=== PATIENT | female | born 1955 | race Caucasian/White ===

== ENCOUNTER 2019-03-18 04:35 | Inpatient (IN) | payer BC ==
[~2019-03-18] VITALS: Ht 157.5 cm; Wt 90.7 kg
--- NOTE | 2019-03-18 04:38 | NUR ---
Patient to ER bed 6 to gown for evaluation. Side rails up. Report given to Helder LOGAN.
--- NOTE | 2019-03-18 04:41 | NUR ---
ER at bedside examining patient.
[2019-03-18 04:42] VITALS: BP_SYST 132
[2019-03-18] MEDS ORDERED: NACL 0.9% 1,000 ML IV ONE (04:50)
[2019-03-18] MEDS ORDERED: MORPHINE SULFATE 10 MG/ML VIAL IVP ONE (05:00)
[2019-03-18] MEDS ORDERED: ONDANSETRON HCL 4 MG/2 ML VIAL IVP ONE ×2 (05:00→20:30)
--- NOTE | 2019-03-18 05:10 | NUR ---
Pt BIBA to ED C/O acute abdominal pain. The patient notes approximately 12 hours of acute onset abdominal pain, located in the bilateral lower quadrants. The patient describes the pain as crampy in nature, "feels like my previous appendicitis, radiating throughout the entire abdomen to deep bilateral back. Pt with past medical history notable for hiatal and ventral wall hernias, history of appendicitis status post appendectomy years prior in number of other abdominal surgeries which the patient cannot remember No other complaints noted VSS no s/s of acute distress Resting on gurney rails up
--- NOTE | 2019-03-18 05:30 | NUR ---
# 22 gauge angiocath placed to RT HAND. Use of asceptic technique. Opsite placed over site. Blood return noted. Blood for lab drawn from site. Flushed with 10 cc of normal saline. No evidence of infiltration noted. Patient tolerated well.
[2019-03-18 05:34] LABS: EOSINOPHILS # (AUTO) 0.1 K/uL (0.0-0.4); EOSINOPHILS % (AUTO) 1.4 % (0.0-4.0); NEUTROPHILS # (AUTO) 5.5 K/uL (1.8-7.7)
[2019-03-18 05:45] LABS: BASOPHILS % (AUTO) 0.4 % (0.0-2.0); HEMATOCRIT 41.5 % (36-48); HEMOGLOBIN 13.7 g/dL (12.0-16.0); LYMPHOCYTES # (AUTO) 1.2 K/uL (1.0-5.5); LYMPHOCYTES % (AUTO) 16.4 % (20.5-51.5); MEAN CORPUSCULAR HEMOGLOBIN 31 pg (27-31); MEAN CORPUSCULAR HGB CONC 33 % (32-36); MEAN CORPUSCULAR VOLUME 95 fL (79.0-98.0); MONOCYTES # (AUTO) 0.6 K/uL (0.0-1.0); MONOCYTES % (AUTO) 8.4 % (1.7-9.3); NEUTROPHILS % (AUTO) 73.4 % (40.0-70.0); PLATELET COUNT (AUTO) 205 K/uL (130-430); RED BLOOD CELL COUNT(AUTO) 4.38 MIL/uL (4.2-6.2); RED CELL DISTRIBUTION WIDTH 13.9 % (9.0-15.0); WHITE BLOOD COUNT (AUTO) 7.4 K/uL (4.8-10.8)
[2019-03-18 05:53] LABS: PROTHROMBIN TIME 9.8 SECS (9.5-12.5)
[2019-03-18 05:55] LABS: ALBUMIN 3.5 g/dL (3.4-4.8); CALCIUM 8.7 mg/dL (8.4-11.0); CREATININE 0.75 mg/dL (0.55-1.30); TOTAL BILIRUBIN 0.3 mg/dL (0.0-1.0)
--- NOTE | 2019-03-18 06:03 | NUR ---
Pt taken to Radiology in stable condition
[2019-03-18] MEDS ORDERED: IOHEXOL 350 mgI/mL, 150 ML INFUS..BTL IV ONE (06:22)
[2019-03-18] MEDS ORDERED: IOHEXOL 100 ML IV ONE (06:23)
[2019-03-18] MEDS ORDERED: MORPHINE 4 MG/ML INJ. SYRINGE ONE (10:36)
[2019-03-18] MEDS ORDERED: ONDANSETRON HCL 4 MG/2 ML VIAL ONE (10:36)
--- NOTE | 2019-03-18 10:43 | NUR ---
[facility].
[2019-03-18 11:11] LABS: BILIRUBIN,URINE NEGATIVE (NEGATIVE); BLOOD, URINE NEGATIVE (NEGATIVE); CLARITY/URINE CLEAR (CLEAR); COLOR,URINE YELLOW (YELLOW); GLUCOSE,URINE NEGATIVE (NEGATIVE); KETONES,URINE TRACE (NEGATIVE); LEUKOCYTE ESTERASE ,URINE NEGATIVE (NEGATIVE); NITRITE, URINE NEGATIVE (NEGATIVE); PROTEIN URINE NEGATIVE (NEGATIVE); UROBILINOGEN,URINE 0.2 (0.2-1.0)
[2019-03-18] MEDS ORDERED: MORP30TA PO (14:56)
[2019-03-18] MEDS ORDERED: ATOR10TA68 PO (15:04)
[2019-03-18] MEDS ORDERED: LISI-600 PO (15:04)
[2019-03-18] MEDS ORDERED: ZOLP10TA2 PO (15:04)
[2019-03-18] MEDS ORDERED: DITXL5 PO (15:04)
[2019-03-18] MEDS ORDERED: HYDR-3607 PO (15:04)
[2019-03-18] MEDS ORDERED: EST1 PO (15:04)
[2019-03-18] MEDS ORDERED: HYOS0.1275 PO (15:04)
[2019-03-18] MEDS ORDERED: DULO60CA41 PO (15:04)
[2019-03-18] MEDS ORDERED: RANI-362 PO (15:04)
--- NOTE | 2019-03-18 15:06 | NUR ---
Tried to give report to DOREEN García. She stated, "room is not clean yet. The patient was not discharged yet. I am not taking the patient yet.". CN aware.
--- NOTE | 2019-03-18 15:10 | NUR ---
Patient will be admitted to care of Dr. Hussein. Admitted to Medsurg unit. Will go to room 134A. Belongings list completed. Complete and up to date summary report printed. SBAR report given to DOREEN Ferrer at bedside with opportunity for questions.
--- NOTE | 2019-03-18 15:18 | NUR ---
CONSULTATION PAGED REASON FOR CONSULTATION:ABD PAIN/HERNIA WAS CONSULT CALLED?Y PERSON WHO WAS NOTIFIED:ARIELLE CONSULTING PHYSICIAN:KENDRA ESTES FOREST AIDE SPECIALTY:SURGEON FOREST AIDE PHONE NUMBER:[phone] REQUESTING PHYSICIAN:BRITTANY ADAMS
[2019-03-18 16:32] VITALS: BP_SYST 120
--- NOTE | 2019-03-18 17:15 | NUR ---
PAGED PAGED BRITTANY ADAMS AT [phone] SPOKE WITH ADITYA.
[2019-03-18] MEDS ORDERED: METOCLOPRAMIDE HCL 10 MG/2 ML VIAL IVP PRN (17:45)
[2019-03-18] MEDS ORDERED: MORPHINE 4 MG/ML INJ. SYRINGE IVP PRN (17:45)
[2019-03-18] MEDS ORDERED: ZOLPIDEM TARTRATE 5 MG TABLET PO PRN (17:45)
[2019-03-18] MEDS ORDERED: ACETAMINOPHEN 325 MG TABLET PO PRN (17:45)
[2019-03-18] MEDS ORDERED: ONDANSETRON HCL 4 MG/2 ML VIAL IVP PRN ×3 (17:45→22:45)
[2019-03-18] MEDS ORDERED: NACL 0.9% 1,000 ML IV SCH (17:45)
[2019-03-18] MEDS ORDERED: MORPHINE 2 MG/ML INJ. SYRINGE IVP PRN ×2 (17:45)
[2019-03-18] MEDS: D5NS 1,000 ML IV SCH (18:28)
--- NOTE | 2019-03-18 19:30 | NUR ---
Opening notes Received report. Patient resting in bed. No signs of distress noted. Breathing even and unlabored. IV patent and intact, infusing fluids. Patient awaiting to go to surgery. Surgical checklist in process. No needs. Call light with the patient. Safety precautions in place.
[2019-03-18 20:00] VITALS: BP_SYST 139
[2019-03-18] MEDS ORDERED: POLYMYXIN 500,000/BACIT.10,000 UNITS in NS IRR 1 L IR ONE (20:05)
[2019-03-18] MEDS ORDERED: BUPIVACAINE LIPOSOME/PF 266 MG/20 ML VIAL INFIL ONE (20:05)
[2019-03-18] MEDS ORDERED: MIDAZOLAM HCL 5 MG/5 ML VIAL IVP ONE (20:30)
[2019-03-18] MEDS ORDERED: PROPOFOL 200MG/ 20ML VIAL (DIPRIVAN) IV ONE (20:30)
[2019-03-18] MEDS ORDERED: SEVOFLURANE 15 MIN GAS INH ONE (20:30)
[2019-03-18] MEDS ORDERED: DEXAMETHASONE SOD PHOSPHATE 4 MG/ML VIAL IVP ONE (20:30)
[2019-03-18] MEDS ORDERED: LR 1,000 ML IV.SOLN IV ONE (20:30)
[2019-03-18] MEDS ORDERED: SUCCINYLCHOLINE CHLORIDE 20 MG/ML(QUELICIN) IVP ONE (20:30)
[2019-03-18] MEDS ORDERED: fentaNYL CITRATE 250 MCG/5 ML AMP IV ONE (20:30)
[2019-03-18] MEDS ORDERED: BUPIVACAINE /PF 0.5% 30 ML VIAL INJ ONE (20:30)
[2019-03-18] MEDS ORDERED: KETOROLAC TROMETHAMINE 30 MG VIAL IVP ONE (20:30)
[2019-03-18] MEDS ORDERED: LIDOCAINE 1% 10 MG/ML, 20 ML MDV INJ ONE (20:30)
[2019-03-18] MEDS ORDERED: NS IRRIG SOLN 1000 ML IR ONE (20:30)
[2019-03-18] MEDS ORDERED: CEFAZOLIN 2 GM IVPB PREMIX 50 ML IV ONE (20:30)
[2019-03-18] MEDS ORDERED: ROCURONIUM BROMIDE 10 MG/ML (ZEMURON) IV ONE (20:30)
--- NOTE | 2019-03-18 20:33 | NUR ---
Pageluz Hussein s/w Anai
--- NOTE | 2019-03-18 20:50 | NUR ---
Patient to OR in stable condition. VSS.
[2019-03-18] MEDS: OXYBUTYNIN CHLORIDE 5 MG TABLET PO SCH (21:00)
[2019-03-18] MEDS: MORPHINE SULFATE 30 MG Immediate Release TABLET PO SCH (21:00)
[2019-03-18] MEDS: DULoxetine HCL 30 MG CAPSULE.DR (CYMBALTA) PO SCH (21:00)
[2019-03-18] MEDS ORDERED: LR 1,000 ML IV SCH (22:33)
[2019-03-18] MEDS ORDERED: HYDROmorphone 1 MG INJ. 1 MG/ML AMPUL IVP PRN (22:45)
[2019-03-18] MEDS ORDERED: MEPERIDINE HCL/PF 25 MG/ML DISP.SYRIN IVP PRN (22:45)
--- NOTE | 2019-03-18 23:15 | NUR ---
Patient back on unit patient in stable condition. Patient vss. Patient has little pain, but does not want medications. No signs of distress noted. Breathing even and unlabored. New IV was inserted into left forearm 20 gauge. Incision to abdomen noted. No drainage noted. Ice packs applied. Incentive spirometer teaching done. Patient able to inspire 1200 ml. Bilateral SCDs in place. Family informed patient back on unit. call light with the patient. Safety precautions in place.
[2019-03-19] VITALS: BP_SYST 131
[2019-03-19 01:00] VITALS: BP_SYST 139
[2019-03-19] MEDS: D5NS 1,000 ML IV SCH (01:34)
--- NOTE | 2019-03-19 02:15 | NUR ---
Resting Patient is resting in bed. No signs of distress noted. Breathing even and unlabored. IVF infusing well. Postop vital signs stable. Patient complains of little pain, no medication needed. No other needs. Call light with the patient. Safety precautions in place.
--- NOTE | 2019-03-19 04:02 | NUR ---
Resting No signs of distress noted. Breathing even and unlabored. IVF infusing fluids. No needs at this time. Call light with the patient. Safety precautions in place.
--- NOTE | 2019-03-19 06:40 | NUR ---
Closing notes Patient is resting in bed. No signs of distress noted. Breathing even and unlabored. IV patent and intact, infusing fluids. No complaints of pain. Surgical site clean dry and intact. All needs met throughout the shift. Call light with the patient. Safety precautions in place. Will endorse care to day shift RN.
--- NOTE | 2019-03-19 08:00 | NUR ---
Opening note patient resting in bed, a/ox4, denies pain, incision on abdomen with dermabond, clean, dry and intact, no s/s of infection, no drainage, IV lines are patent and infusing well, educated religion instructor light system and plan of care, she verbalized understanding, continuing to monitor, bed in lowest position, three side rails up, bed alarm on, bed close to nursing station, fall and aspiration precautions in place.
--- NOTE | 2019-03-19 08:10 | NUR ---
Pain patient resting in bed, states that she thought she could tolerate the patient, but she cannot. Educated her on pain management and on pain medication uses and potential side effects, she verbalized understanding, IV line is patent and infusing well, continuing to monitor, bed in lowest position, three side rails up, bed alarm on, bed close to nursing station, fall and aspiration precautions in place.
[2019-03-19 09:04] VITALS: BP_SYST 131
[2019-03-19] MEDS: OXYBUTYNIN CHLORIDE 5 MG TABLET PO SCH ×2 (09:09→21:37)
[2019-03-19] MEDS: ATORVASTATIN 10 MG TABLET PO SCH (09:09)
[2019-03-19] MEDS: DULoxetine HCL 30 MG CAPSULE.DR (CYMBALTA) PO SCH ×2 (09:09→21:37)
[2019-03-19] MEDS: MORPHINE SULFATE 30 MG Immediate Release TABLET PO SCH ×2 (09:10→21:38)
[2019-03-19] MEDS: LISINOPRIL 20 MG TABLET PO SCH (09:10)
--- NOTE | 2019-03-19 09:10 | NUR ---
Medication patient resting in bed, awake, educated on medications uses and potential side effects, she verbalized understanding and tolerated well, continuing to monitor, bed in lowest position, three side rails up, bed alarm on, bed close to nursing station, fall and aspiration precautions in place.
[2019-03-19] MEDS: ENOXAPARIN SODIUM 40 MG/0.4 ML SYRINGE SUBCUT SCH (09:14)
[2019-03-19] MEDS: ESTRADIOL 1 MG TABLET (ESTRACE) PO SCH (09:20)
--- NOTE | 2019-03-19 12:00 | NUR ---
RN rounds/Patient OOB assisted patient to the restroom, then onto chair, she tolerated well, re-educated patient to use the incentive spirometer, she verbalized understanding, no other needs at this time, continuing to monitor, bed in lowest position, call light placed within reach, bed alarm on, bed close to nursing station, fall and aspiration precautions in place.
[2019-03-19 12:58] VITALS: BP_SYST 124
[2019-03-19] MEDS: HYDROcodone/ACETAMIN 5-325 MG TAB (NORCO/ VICODIN) PO PRN (14:57)
--- NOTE | 2019-03-19 14:57 | NUR ---
Pain patient resting in chair at bedside, states that she has some pain, educated on pain medication uses and potential side effects, she verbalized understanding and tolerated well, continuing to monitor, bed in lowest position, call light within reach, bed close to nursing station, fall and aspiration precautions in place.
[2019-03-19 16:16] VITALS: BP_SYST 132
--- NOTE | 2019-03-19 16:37 | NUR ---
RN rounds patient resting in chair at bedside, patient ambulated in the unit, steady gait, states mild but tolerable pain at this time, called for chicken broth per patient request, no other needs at this time, call light is within reach, fall and aspiration precautions in place.
--- NOTE | 2019-03-19 18:46 | NUR ---
Closing note patient resting in chair at bedside, awake, no signs of pain, no signs of distress, all needs met, will endorse report to NOC shift nurse, bed in lowest position, call light within reach, fall and aspiration precautions in place.
--- NOTE | 2019-03-19 19:30 | NUR ---
Pt is fully awake, alert and oriented x4. No acute distress noted and no c/o pain or discomfort. Abdominal incision with Dermabond is clean and dry. IV sites in RH and RFA are without any signs of infiltration. Pt was encouraged to use IS 10X Q 1hr WA and pt verbalized understanding. Pt's IS usage is up to 1500ml. Fall and safety precautions are in place.
[2019-03-19 20:00] VITALS: BP_SYST 139
--- NOTE | 2019-03-19 20:30 | NUR ---
Pt is ambulating in the hallway with FWW with steady gait. No acute distress noted.
--- NOTE | 2019-03-19 21:38 | NUR ---
Scheduled HS medications given. Pt was also given 2 cups of hot water, tea bags, decaffeinated coffee, sugar, creamer, milk and some saltine crackers per her request. Pt stated she is able to tolerate Regular diet at this time. Pt stated walking a lot has helped her. Will order Regular diet for breakfast per pt's request.
--- NOTE | 2019-03-19 23:00 | NUR ---
Pt is awake and not in any distress. Fall and safety precautions are in place.
[2019-03-20] VITALS: BP_SYST 134
[2019-03-20] MEDS: HYDROcodone/ACETAMIN 5-325 MG TAB (NORCO/ VICODIN) PO PRN ×2 (01:34→14:18)
--- NOTE | 2019-03-20 01:34 | NUR ---
Harbeson 5/325mg 1 tablet was given po per pt's request for c/o 5/10 abdominal incisional pain. Pt then ambulated in the hallway with a FWW. Gait steady.
--- NOTE | 2019-03-20 03:00 | NUR ---
Pt is sleeping without any distress noted. Fall and safety precautions are in place.
--- NOTE | 2019-03-20 05:00 | NUR ---
Pt is sleeping comfortably in bed. Fall and safety precautions are in place.
--- NOTE | 2019-03-20 06:45 | NUR ---
Pt is awake and resting quietly in bed. No c/o pain or discomfort. All pt's needs were attended to. Saline locks are intact in RH and RFA. Will endorse to day shift nurse.
--- NOTE | 2019-03-20 07:30 | NUR ---
RN ROUNDS PT EXITING RESTROOM, STEADY GAIT. PT STATES SHE HAS NOT HAD A BOWEL MOVEMENT AND HAS NOT PASSED GAS. IV SALINE LOCKED. CALL LIGHT WITHIN REACH, BED IN LOW AND LOCKED POSITION WITH BED ALARM ON. EDUCATED PT ON SAFETY AND PURPOSE OF BED ALARM, PT VERBALIZED UNDERSTANDING, PT REFUSING BED ALARM AT THIS TIME.
[2019-03-20 08:00] VITALS: BP_SYST 123
[2019-03-20] MEDS: MORPHINE SULFATE 30 MG Immediate Release TABLET PO SCH ×2 (08:44→20:42)
[2019-03-20] MEDS: OXYBUTYNIN CHLORIDE 5 MG TABLET PO SCH ×2 (08:44→20:42)
[2019-03-20] MEDS: ESTRADIOL 1 MG TABLET (ESTRACE) PO SCH (08:44)
[2019-03-20] MEDS: DULoxetine HCL 30 MG CAPSULE.DR (CYMBALTA) PO SCH ×2 (08:44→20:42)
[2019-03-20] MEDS: LISINOPRIL 20 MG TABLET PO SCH (08:45)
[2019-03-20] MEDS: ATORVASTATIN 10 MG TABLET PO SCH (08:45)
[2019-03-20] MEDS: ENOXAPARIN SODIUM 40 MG/0.4 ML SYRINGE SUBCUT SCH (08:49)
--- NOTE | 2019-03-20 09:30 | NUR ---
RN ROUNDS PT SITTING AT BEDSIDE CHAIR. MORNING MEDICATIONS ADMINISTERED. INCISION ASSESSED, CLEAN AND DRY, PRETTY. WILL CONTINUE TO MONITOR.
--- NOTE | 2019-03-20 09:40 | NUR ---
Nutrition Update Devyn Scale 18 noted. Pt admitted for abd pain. Diet: regular BMI: 36.6 kg/m2 RD to follow per nutrition care standards.
[2019-03-20 09:43] LABS: BASOPHILS % (AUTO) 0.2 % (0.0-2.0); EOSINOPHILS # (AUTO) 0.3 K/uL (0.0-0.4); EOSINOPHILS % (AUTO) 4.1 % (0.0-4.0); HEMATOCRIT 40.6 % (36-48); HEMOGLOBIN 13.3 g/dL (12.0-16.0); LYMPHOCYTES % (AUTO) 13.9 % (20.5-51.5); MEAN CORPUSCULAR HEMOGLOBIN 31 pg (27-31); MEAN CORPUSCULAR HGB CONC 33 % (32-36); MEAN CORPUSCULAR VOLUME 96 fL (79.0-98.0); MONOCYTES # (AUTO) 0.7 K/uL (0.0-1.0); MONOCYTES % (AUTO) 9.5 % (1.7-9.3); NEUTROPHILS # (AUTO) 5.2 K/uL (1.8-7.7); NEUTROPHILS % (AUTO) 72.3 % (40.0-70.0); PLATELET COUNT (AUTO) 198 K/uL (130-430); RED BLOOD CELL COUNT(AUTO) 4.26 MIL/uL (4.2-6.2); RED CELL DISTRIBUTION WIDTH 13.7 % (9.0-15.0); WHITE BLOOD COUNT (AUTO) 7.2 K/uL (4.8-10.8)
[2019-03-20 09:44] LABS: CREATININE 0.87 mg/dL (0.55-1.30); POTASSIUM 3.5 mmol/L (3.5-5.1)
[2019-03-20 09:49] LABS: TOTAL BILIRUBIN 0.4 mg/dL (0.0-1.0)
--- NOTE | 2019-03-20 11:30 | NUR ---
RN ROUNDS NO CHANGE IN ASSESSMENT, WILL CONTINUE TO MONITOR.
[2019-03-20 12:00] VITALS: BP_SYST 131
--- NOTE | 2019-03-20 13:30 | NUR ---
RN ROUNDS NO CHANGE IN ASSESSMENT, WILL CONTINUE TO MONITOR.
--- NOTE | 2019-03-20 14:25 | NUR ---
PAIN MEDICATIONS PT COMPLAINING OF ABDOMINAL AND LOWER BACK PAIN, 07/15. EDUCATED PT ON USES AND SIDE EFFECTS OF NORCO. PT VERBALIZED UNDERSTANDING. PRN NORCO ADMINISTERED. WILL CONTINUE TO MONITOR.
[2019-03-20 16:00] VITALS: BP_SYST 115
--- NOTE | 2019-03-20 16:30 | NUR ---
RN ROUNDS PAIN CONTROLLED AT THIS TIME. PT SITTING IN BEDSIDE CHAIR. WILL CONTINUE TO MONITOR.
--- NOTE | 2019-03-20 18:23 | NUR ---
CLOSING NOTE PT SITTING ON BEDSIDE CHAIR. PAIN CONTROLLED AT THIS TIME. PT TOLERATED DIET WELL. PT HAS NOT HAD A BOWEL MOVEMENT YET. IV SALINE LOCKED. FAMILY AT BEDSIDE. CALL LIGHT WITHIN REACH, BED IN LOW AND LOCKED POSITION. EDUCATED PT ON SAFETY AND USE OF BED ALARM, PT VERBALIZED UNDERSTANDING. PT REFUSED BED ALARM. ALL NEEDS MET THROUGHOUT SHIFT. WILL CONTINUE TO MONITOR UNTIL PT CARE IS ENDORSED TO WAITER/WAITRESS TOURIST CLASS RN.
--- NOTE | 2019-03-20 19:35 | NUR ---
ROUNDS PATIENT RESTING COMFORTABLY IN BED, NOT IN DISTRESS, VITALS STABLE. DENIES ANY PAIN AND DISCOMFORT AT THIS TIME. ASSESSMENT DONE AND DOCUMENTED. SEE FLOWSHEET. NEEDS ATTENDED TO. SAFETY AND FALL MEASURES IN PLACED. BED IN LOW AND LOCKED POSITION. CALL LIGHT PLACED WITHIN REACH.
--- NOTE | 2019-03-21 00:14 | NUR ---
PATIENT RESTING: Patient resting quietly. No acute distress noted. Vital signs within normal range.
--- NOTE | 2019-03-21 02:10 | NUR ---
ROUNDS PATIENT ASLEEP, RESPIRATIONS EVEN AND UNLABORED, WILL CONTINUE TO MONITOR.
[2019-03-21 04:00] VITALS: BP_SYST 120
--- NOTE | 2019-03-21 04:16 | NUR ---
ROUNDS PATIENT ASLEEP IN BED, RESPIRATIONS EVEN AND UNLABORED, NO SIGNS OF ANY PAIN AND DISCOMFORT NOTED. WILL CONTINUE TO MONITOR.
[2019-03-21 07:58] VITALS: BP_SYST 144
--- NOTE | 2019-03-21 08:00 | NUR ---
Note Pt sitting up in BS chair eating her breakfast. Pt ambulated independently to restroom to void with steady gait. No SOB/resp distress or severe abdominal pain/discomfort noted. Pt has IV in right hand and right forearm, intact and patent. Abdominal incision on right side of abdomen intact with Dermabond. No swelling/bleeding/drainage or odor noted at this time. No needs noted. Call light within reach.
[2019-03-21] MEDS: MORPHINE SULFATE 30 MG Immediate Release TABLET PO SCH (09:07)
[2019-03-21] MEDS: ESTRADIOL 1 MG TABLET (ESTRACE) PO SCH (09:07)
[2019-03-21] MEDS: ATORVASTATIN 10 MG TABLET PO SCH (09:08)
[2019-03-21] MEDS: OXYBUTYNIN CHLORIDE 5 MG TABLET PO SCH (09:08)
[2019-03-21] MEDS: LISINOPRIL 20 MG TABLET PO SCH (09:08)
[2019-03-21] MEDS: DULoxetine HCL 30 MG CAPSULE.DR (CYMBALTA) PO SCH (09:08)
[2019-03-21] MEDS: ENOXAPARIN SODIUM 40 MG/0.4 ML SYRINGE SUBCUT SCH (09:16)
--- NOTE | 2019-03-21 10:30 | NUR ---
Note Dr Hussein on the floor doing assessment and writing order for discharge if okay with Dr Correa (surgeon).
[2019-03-21 12:00] VITALS: BP_SYST 119
--- NOTE | 2019-03-21 13:55 | NUR ---
Note Dr Correa was on the floor and assessment was completed. Orders given. Pt to be given her MOM and provided with towels/IV wrapped on right hand. No needs noted. Call light within reach.
[2019-03-21] MEDS ORDERED: MILK OF MAGNESIA 30 ML UDC PO ONE (14:00)
--- NOTE | 2019-03-21 14:55 | NUR ---
DC PLANNING Spoke w pt @ bedside, lives alone & would like home health, no preference. Pt ambulating around unit & room independently using fww. Pt has own fww. Called & discussed w Dr Hussein, gave phone order for home health. Called & informed Siena @ [facility]), ph [phone] fax [phone], states to fax order & they will set up home health. Informed pt still no flatus or BM, needs to have before can discharge. Faxed order & pt info requested to [facility]. Informed pt @ bedside, states has no preference, signed choice letter for no preference. Explained Medicare IM letter, pt signed, copy given. Pt nurse aware. Addendum: 03/21/19 at 1502 by Siena Weems RN Per iSena Scruggs is CM covering this weekend, ph [phone]. Addendum: 03/21/19 at 1701 by Rachel GRULLON Per Sheba Gonzalez ([phone]) [facility] [phone]
[2019-03-21 16:00] VITALS: BP_SYST 120
--- NOTE | 2019-03-21 16:20 | NUR ---
Note Pt went to have shower - towels were provided and pt had her own change of clothes. No needs noted. Pt has been ambulating in room all shift with walker and independently with steady gait. Call light within reach.
[2019-03-21 17:13] VITALS: BP_SYST 125
--- NOTE | 2019-03-21 18:45 | NUR ---
Note Pt was checked on q1' and PRN all shift for needs and care. No SOB/resp distress or severe abdominal pain/discomfort was noted at this time. Abdominal incision with Dermabond intact and no swelling/bleeding/drainage noted at this time. IV in right forearm intact and patent. Right hand IV was dc'd as it was infiltrated. Call light within reach. No needs noted.
[2019-03-21] MEDS ORDERED: MILK OF MAGNESIA 30 ML UDC PO SCH (20:00)
--- NOTE | 2019-03-25 15:40 | NUR ---
Discharge Follow Up Phone Call Phoned patient, , but there was no answer and no voicemail. [facility] and set up a visit, but patient then refused home health.
== END 2019-03-21 20:10 | disposition home or self-care (01) | DRG 355 ==
LOC: SED 04:35 → SMU 12:51
PROVIDERS: ADMIT Internal Medicine Hospice and Palliative Medicine; ATTEND Internal Medicine Hospice and Palliative Medicine
PROC: 0WUF0JZ Supplement Abdominal Wall with Synthetic Substitute, Open Approach (ICD-10-PCS; principal; 2019-03-18 20:50)
DX: K43.0 Incisional hernia with obstruction, without gangrene (principal); G89.29 Other chronic pain; F32.9 Major depressive disorder, single episode, unspecified; Z90.49 Acquired absence of other specified parts of digestive tract; E66.9 Obesity, unspecified; Z79.899 Other long term (current) drug therapy; Z90.710 Acquired absence of both cervix and uterus; Z68.36 Body mass index [BMI] 36.0-36.9, adult
CPT/HCPCS: 36415; 71045; 80053; 81003; 82150-TC; 83605; 83690-TC; 84484; 85025; 85610-TC; 86886; 86900; 86901; 87040-TC; 87081; 93005; 94760; 96361; 96374; 96375; 99285; C1781; C9290; J0330; J0690; J1100; J1650; J1885; J2001; J2250; J2270; J2274; J2405; J2704; J3010; J3490; J7120; Q9967

== ENCOUNTER 2021-07-26 12:08 | Emergency (ER) | payer BC, OTHER ==
[~2021-07-26] VITALS: Ht 157.5 cm; Wt 90.7 kg
[~2021-07-26 12:08] MED LIST: ATOR10TA68 PO; DITXL5 PO; DULO60CA42 PO; EST1 PO; HYDR-3607 PO; HYOS0.1275 PO; LISI20TA30 PO; MORP30TA PO; RANI-362 PO; ZOLP10TA2 PO
--- NOTE | 2021-07-26 12:08 | NUR ---
PT TRIAGED AND PLACED IN ED HALLWAY ON LINE INSTALLER REPAIRER AWAITING AVAILABLE BED. CN AND AWARE OF MSE NEEDS
--- NOTE | 2021-07-26 12:10 | NUR ---
PT WAS BEING SEEN AT [facility] NEXT TO SD, PER EMS PT WAS HYPOTENSIVE IN OFFICE 94/65, LETHARGIC, CONFUSED AND WALKING WITH AN UNSTEADY GAIT. PT ARRIVES IN WC WITH SQUAD 64, ABLE TO AMBULATE TO [facility] WITH STEADY GAIT. AAOX3, SLOW TO RESPOND TO SOME QUESTIONS, NO FACIAL DROOP, NO SOB. STATES SHE WAS EXPOSED TO COVID 2 DAYS AGO.
[2021-07-26 12:21] VITALS: BP_SYST 90
--- NOTE | 2021-07-26 12:25 | NUR ---
PT O2 SAT DECREASING ON RA DOWN TO 78%, PLACED ON NC @ 5LPM, O2 SAT INCREASED TO 98%
--- NOTE | 2021-07-26 12:30 | NUR ---
Placed in room 8 . Placed on monitoring specialist, blood pressure machine and pulse oximeter. To gown for exam. Side rails up. Report given to DOREEN RICO.
--- NOTE | 2021-07-26 12:34 | NUR ---
ER EXAMINING PT
--- NOTE | 2021-07-26 12:49 | NUR ---
Patient came from Dr. Malcolm's office H she was found to be hypotensive weak patient states that she was exposed to COVID through her niece last Sunday evening Sunday she woke up with a cough she has a history of hypertension only patient feels weak and dizzy but denies a chest pain or shortness of breath she also denies fever phlegm production. Saftey precautions in place.
[2021-07-26] MEDS: NACL 0.9% 1,000 ML IV ONE (13:30)
[2021-07-26 15:28] LABS: BASOPHILS # (AUTO) 0.1 K/uL (0.0-0.2); BASOPHILS % (AUTO) 0.8 % (0.0-2.0); EOSINOPHILS # (AUTO) 0.2 K/uL (0.0-0.4); EOSINOPHILS % (AUTO) 2.1 % (0.0-4.0); HEMATOCRIT 35.6 % (36-48); HEMOGLOBIN 11.6 g/dL (12.0-16.0); LYMPHOCYTES # (AUTO) 1.5 K/uL (1.0-5.5); LYMPHOCYTES % (AUTO) 17.9 % (20.5-51.5); MEAN CORPUSCULAR HEMOGLOBIN 29 pg (27-31); MEAN CORPUSCULAR HGB CONC 33 % (32-36); MEAN CORPUSCULAR VOLUME 88 fL (79.0-98.0); MONOCYTES # (AUTO) 0.7 K/uL (0.0-1.0); MONOCYTES % (AUTO) 8.4 % (1.7-9.3); NEUTROPHILS % (AUTO) 70.8 % (40.0-70.0); PLATELET COUNT (AUTO) 226 K/uL (130-430); RED BLOOD CELL COUNT(AUTO) 4.04 MIL/uL (4.2-6.2); RED CELL DISTRIBUTION WIDTH 17.9 % (9.0-15.0); WHITE BLOOD COUNT (AUTO) 8.4 K/uL (4.8-10.8)
--- NOTE | 2021-07-26 16:11 | NUR ---
NO ACUTE CHANGE IN CONDITION, PT IN NAD. RESP EVEN AND UNLABORED, ON VIA NC @ 95%.
[2021-07-26 16:12] LABS: ANION GAP 11 (5-15); CALCIUM 7.7 mg/dL (8.4-11.0); CHLORIDE 94 mmol/L (98-107); CREATININE 3.22 mg/dL (0.55-1.30); GLUCOSE 120 mg/dL (70-99); POTASSIUM 4.2 mmol/L (3.5-5.1); SODIUM SERUM 130 mmol/L (136-145); UREA NITROGEN, BLOOD 39 mg/dL (8-21)
[2021-07-26 16:19] LABS: ALANINE AMINOTRANSFERASE 18 U/L (12-78); ALBUMIN 3.3 g/dL (3.4-4.8); ASPARTATE AMINOTRANSFERASE 18 U/L (10-37); TOTAL BILIRUBIN 0.3 mg/dL (0.0-1.0)
[2021-07-26 16:42] LABS: GFR AFRICAN AMERICAN 19 mL/min (>90)
[2021-07-26 17:18] LABS: ACETONE, SERUM NEGATIVE (NEGATIVE)
--- NOTE | 2021-07-26 17:44 | NUR ---
ROUNDS DONE, PT REQUESTING WATER, PROVIDED REQUESTED, DENIES ANY PAIN OR SOB AT THIS TIME.
--- NOTE | 2021-07-26 18:13 | NUR ---
FAMILY MEMBER AT BEDSIDE, PT EATING SNACKS, REG DIET FOR DINNER TRAY REQUESTED.
--- NOTE | 2021-07-26 19:23 | NUR ---
REPORT GIVEN TO PASCALE LOGAN.
[2021-07-26 21:40] VITALS: BP_SYST 108
--- NOTE | 2021-07-26 21:40 | NUR ---
Patient given written and verbal discharge instructions and verbalizes understanding. ER MD Siddiqui discussed with patient the results and treatment provided. Patient in stable condition. ID arm band removed. IV catheter removed intact and dressing applied, no active bleeding. Patient educated on pain management and to follow up with PMD. Pain Scale 0/10 Opportunity for questions provided and answered.
== END 2021-07-26 21:40 | disposition home or self-care (01) ==
LOC: SED 12:08
DX: N18.9 Chronic kidney disease, unspecified (principal); Z79.899 Other long term (current) drug therapy; Z20.822 Contact with and (suspected) exposure to COVID-19
CPT/HCPCS: 36415; 71045; 80053; 82009; 82550; 83605; 85025; 93005; 99285

== ENCOUNTER 2022-04-03 13:56 | Inpatient (IN) | payer OTHER ==
[~2022-04-03] VITALS: Ht 154.9 cm; Wt 90.3 kg
[2022-04-03] MEDS ORDERED: NACL 0.9% 1,000 ML IV ONE ×4 (14:45→17:30)
[2022-04-03] MEDS ORDERED: NALOXONE HCL 0.4 MG/ML AMP (NARCAN) IVP ONE (15:45)
[2022-04-03 15:47] LABS: BASOPHILS % (AUTO) 0.1 % (0.0-2.0); HEMATOCRIT 37.6 % (36-48); HEMOGLOBIN 11.7 g/dL (12.0-16.0); LYMPHOCYTES % (AUTO) 4.7 % (20.5-51.5); MEAN CORPUSCULAR HEMOGLOBIN 28 pg (27-31); MEAN CORPUSCULAR HGB CONC 31 % (32-36); MEAN CORPUSCULAR VOLUME 89 fL (79.0-98.0); MONOCYTES # (AUTO) 1.3 K/uL (0.0-1.0); MONOCYTES % (AUTO) 5.8 % (1.7-9.3); NEUTROPHILS # (AUTO) 19.5 K/uL (1.8-7.7); NEUTROPHILS % (AUTO) 89.4 % (40.0-70.0); PLATELET COUNT (AUTO) 234 K/uL (130-430); RED BLOOD CELL COUNT(AUTO) 4.24 MIL/uL (4.2-6.2); RED CELL DISTRIBUTION WIDTH 17.9 % (9.0-15.0); WHITE BLOOD COUNT (AUTO) 21.8 K/uL (4.8-10.8)
[2022-04-03 15:53] LABS: INR 1.1 (0.8-1.2); PROTHROMBIN TIME 10.7 SECS (9.5-12.5)
[2022-04-03 15:55] LABS: ANION GAP 16 (5-15); CALCIUM 8.5 mg/dL (8.4-11.0); CHLORIDE 96 mmol/L (98-107); CREATININE 3.07 mg/dL (0.55-1.30); GLUCOSE 115 mg/dL (70-99); UREA NITROGEN, BLOOD 42 mg/dL (8-21)
[2022-04-03 15:57] LABS: GFR AFRICAN AMERICAN 19 mL/min (>90)
[2022-04-03] MEDS ORDERED: PIPERACILLIN/TAZOBACTAM 2.25 GM in NS 50 ML IV ONE (16:00)
[2022-04-03] MEDS ORDERED: VANCOMYCIN HCL 1,000 MG in NS 250 ML IV ONE (16:00)
[2022-04-03 16:02] LABS: ALANINE AMINOTRANSFERASE 29 U/L (12-78); ALBUMIN 3.4 g/dL (3.4-4.8); ALCOHOL, BLOOD 4 mg/dL (<10); ASPARTATE AMINOTRANSFERASE 56 U/L (10-37); TOTAL BILIRUBIN 0.6 mg/dL (0.0-1.0)
[2022-04-03 16:04] LABS: ACETAMINOPHEN < 1 ug/mL (1-30)
[2022-04-03] MEDS ORDERED: PIPERACILLIN/TAZOBACTAM 2.25 GM VIAL IV ONE (16:15)
[2022-04-03] MEDS ORDERED: VANCOMYCIN HCL 1000 MG/VIAL IV ONE (16:15)
[2022-04-03] MEDS ORDERED: MAGNESIUM SULFATE/D5W 100 ML IV ONE (17:15)
[2022-04-03 17:17] LABS: BILIRUBIN,URINE NEGATIVE (NEGATIVE); BLOOD, URINE 3+ (NEGATIVE); COLOR,URINE YELLOW (YELLOW); GLUCOSE,URINE NEGATIVE (NEGATIVE); KETONES,URINE NEGATIVE (NEGATIVE); LEUKOCYTE ESTERASE ,URINE NEGATIVE (NEGATIVE); NITRITE, URINE NEGATIVE (NEGATIVE); PROTEIN URINE TRACE (NEGATIVE); UROBILINOGEN,URINE 0.2 (0.2-1.0)
[2022-04-03 17:27] LABS: CLARITY/URINE SLIGHTLY HAZY (CLEAR)
[2022-04-03 17:29] LABS: BARBITURATE, URINE NEGATIVE (NEG <=200); BENZODIAZEPINE, URINE POSITIVE (NEG <=150); CANNABINOID, URINE NEGATIVE (NEG <=50); COCAINE, URINE NEGATIVE (NEG <=150); METHAMPHETAMINES SCREEN,URINE NEGATIVE (NEG <=500); OPIATE, URINE POSITIVE (NEG <=100); PHENCYCLIDINE SCREEN,URINE NEGATIVE (NEG <=25); UR TRICYCLIC ANTIDEPRESSANTS NEGATIVE (NEG <=300); URINE AMPHETAMINE NEGATIVE (NEG <=500); URINE METHADONE NEGATIVE (NEG <=200); URINE OXYCODONE SCREEN NEGATIVE (NEG <=100); URINE PROPOXYPHENE SCREEN NEGATIVE (NEG <=300)
[2022-04-03 17:39] LABS: BACTERIA,URINE FEW /HPF (None Seen); MUCUS,URINE None Seen /LPF (None Seen); RBC,URINE NONE SEEN /HPF (0-3); WBC,URINE 0-3 /HPF (0-3)
[2022-04-03] MEDS ORDERED: POTASSIUM CHLORIDE 20 MEQ TAB.PRT.SR PO PRN (18:45)
[2022-04-03] MEDS ORDERED: DOCUSATE SODIUM 100 MG CAPSULE PO PRN (18:45)
[2022-04-03] MEDS ORDERED: ACETAMINOPHEN 325 MG TABLET PO PRN (18:45)
[2022-04-03] MEDS ORDERED: IPRATROPIUM/ALBUTEROL SULFATE 3 ML AMPUL.NEB (DUONEB) INH PRN (18:45)
[2022-04-03] MEDS ORDERED: LORazepam 2 MG/ML VIAL IVP PRN (18:45)
[2022-04-03] MEDS ORDERED: MAGNESIUM SULFATE 50 ML IV PRN (18:45)
[2022-04-03] MEDS ORDERED: ONDANSETRON HCL 4 MG/2 ML VIAL IVP PRN (18:45)
[2022-04-03] MEDS ORDERED: MUPIROCIN 2% TOPICAL OINTMENT 22 GM NS PRN (18:45)
[2022-04-03] MEDS: NACL 0.9% 1,000 ML IV SCH (19:04)
[2022-04-03 20:36] LABS: CALCIUM 8.3 mg/dL (8.4-11.0); CREATININE 2.25 mg/dL (0.55-1.30)
[2022-04-03] MEDS ORDERED: SODIUM POLYSTYRENE SULFONATE 15 GM/60 ML UDBTL PO ONE (23:30)
[2022-04-04] MEDS: DULoxetine HCL 30 MG CAPSULE.DR (CYMBALTA) PO SCH ×3 (00:03→21:33)
[2022-04-04] MEDS: PIPERACILLIN/TAZOBACTAM 2.25 GM in NS 50 ML IV SCH ×4 (00:03→21:32)
[2022-04-04] MEDS: HEPARIN SODIUM,PORCINE 5,000 UNITS/ML VIAL SUBCUT SCH ×3 (00:07→21:55)
[2022-04-04 04:10] VITALS: BP_SYST 92
[2022-04-04] MEDS: NACL 0.9% 1,000 ML IV SCH ×2 (06:24→17:51)
[2022-04-04 06:59] LABS: CALCIUM 8.5 mg/dL (8.4-11.0); CREATININE 1.74 mg/dL (0.55-1.30)
[2022-04-04 07:07] LABS: BASOPHILS # (AUTO) 0.1 K/uL (0.0-0.2); BASOPHILS % (AUTO) 0.5 % (0.0-2.0); EOSINOPHILS # (AUTO) 0.1 K/uL (0.0-0.4); EOSINOPHILS % (AUTO) 1.1 % (0.0-4.0); HEMATOCRIT 35.9 % (36-48); HEMOGLOBIN 11.7 g/dL (12.0-16.0); LYMPHOCYTES # (AUTO) 1.5 K/uL (1.0-5.5); LYMPHOCYTES % (AUTO) 12.3 % (20.5-51.5); MEAN CORPUSCULAR HEMOGLOBIN 28 pg (27-31); MEAN CORPUSCULAR HGB CONC 33 % (32-36); MEAN CORPUSCULAR VOLUME 87 fL (79.0-98.0); MONOCYTES % (AUTO) 8.2 % (1.7-9.3); NEUTROPHILS # (AUTO) 9.4 K/uL (1.8-7.7); NEUTROPHILS % (AUTO) 77.9 % (40.0-70.0); PLATELET COUNT (AUTO) 213 K/uL (130-430); RED BLOOD CELL COUNT(AUTO) 4.15 MIL/uL (4.2-6.2); WHITE BLOOD COUNT (AUTO) 12.1 K/uL (4.8-10.8)
[2022-04-04 07:58] VITALS: BP_SYST 115
[2022-04-04] MEDS ORDERED: LEVO-62 PO (09:40)
[2022-04-04] MEDS ORDERED: NALOXONE HCL 0.4 MG/ML AMP (NARCAN) IVP PRN (10:00)
[2022-04-04] MEDS: HYDROcodone/ACETAMIN 5-325 MG TAB (NORCO/ VICODIN) PO PRN ×3 (10:53→21:30)
[2022-04-04] MEDS ORDERED: METOPROLOL SUCCINATE 25 MG TAB.SR.24H (TOPROL XL) PO ONE (15:15)
[2022-04-04 16:25] VITALS: BP_SYST 116
[2022-04-04 20:00] VITALS: BP_SYST 134
[2022-04-05] MEDS: NACL 0.9% 1,000 ML IV SCH ×2 (00:45→10:45)
[2022-04-05 01:23] VITALS: BP_SYST 133
[2022-04-05] MEDS: HYDROcodone/ACETAMIN 5-325 MG TAB (NORCO/ VICODIN) PO PRN ×2 (04:35→10:54)
[2022-04-05] MEDS: PIPERACILLIN/TAZOBACTAM 2.25 GM in NS 50 ML IV SCH (06:26)
[2022-04-05 08:00] VITALS: BP_SYST 138
[2022-04-05] MEDS ORDERED: METOPROLOL SUCCINATE 25 MG TAB.SR.24H (TOPROL XL) PO SCH (09:00)
[2022-04-05] MEDS: DULoxetine HCL 30 MG CAPSULE.DR (CYMBALTA) PO SCH (10:53)
[2022-04-05] MEDS: HEPARIN SODIUM,PORCINE 5,000 UNITS/ML VIAL SUBCUT SCH (10:55)
[2022-04-05 11:37] VITALS: BP_SYST 146
[2022-04-05 11:57] VITALS: BP_SYST 146
== END 2022-04-05 12:40 | disposition home health service (06) | DRG 917 ==
LOC: SED 13:56 → STU 18:40
PROVIDERS: ADMIT General Practice; ATTEND General Practice
PROC: 5A09357 Assistance with Respiratory Ventilation, Less than 24 Consecutive Hours, Continuous Positive Airway Pressure (ICD-10-PCS; principal; 2022-04-03)
DX: T40.2X1A Poisoning by other opioids, accidental (unintentional), initial encounter (principal); G92.8 Other toxic encephalopathy; N17.0 Acute kidney failure with tubular necrosis; N39.0 Urinary tract infection, site not specified; F11.20 Opioid dependence, uncomplicated; E11.9 Type 2 diabetes mellitus without complications; I10 Essential (primary) hypertension; I25.10 Atherosclerotic heart disease of native coronary artery without angina pectoris; Z20.822 Contact with and (suspected) exposure to COVID-19; R00.8 Other abnormalities of heart beat; G89.4 Chronic pain syndrome; E78.5 Hyperlipidemia, unspecified; E03.9 Hypothyroidism, unspecified; Z79.899 Other long term (current) drug therapy; Z86.73 Personal history of transient ischemic attack (TIA), and cerebral infarction without residual deficits
CPT/HCPCS: 36415; 36600; 70450-TC; 71045; 76376; 80048; 80053; 80307; 81000; 82803-TC; 82962; 83037; 83605; 83735; 83880; 84484; 85025; 85610-TC; 85730-TC; 87040; 87081; 87086; 93005; 93306; 94660; 96365; 96368; 96375; 97116-GP; 97163-GP; 99291; G0378; G0480; G0481; G0482; J1644; J2310; J2405; J2543; J3370